=== PATIENT | female | born 1930 ===

== ENCOUNTER 2017-08-04 09:42 | Outpatient (CLI) | payer OTHER ==
[~2017-08-04 09:42] MED LIST: FLONASE16 GM NS; LIPO-FLAVONOID1 EACH PO
== END 2017-08-04 09:47 | disposition home or self-care (01) ==
LOC: NUCLEAR 09:42
DX: D35.1 Benign neoplasm of parathyroid gland (principal); E83.52 Hypercalcemia
CPT/HCPCS: 78072; A9500

== ENCOUNTER 2017-11-13 13:32 | Outpatient (CLI) | payer OTHER | END 2017-11-13 13:42 | disposition home or self-care (01) | LOC: NUCLEAR 13:32 | DX: M81.0 Age-related osteoporosis without current pathological fracture (principal) ==

== ENCOUNTER 2018-08-18 07:09 | Outpatient (CLI) | payer OTHER | END 2018-08-18 07:24 | disposition home or self-care (01) | LOC: TOM 07:09 | DX: R10.12 Left upper quadrant pain (principal); R10.32 Left lower quadrant pain ==

== ENCOUNTER 2020-12-06 09:25 | Outpatient (CLI) | payer OTHER | END 2020-12-06 09:30 | disposition home or self-care (01) | LOC: RAD 09:25 | PROVIDERS: ATTEND Physical Medicine & Rehabilitation | DX: M41.87 Other forms of scoliosis, lumbosacral region (principal); M54.59 Other low back pain ==

== ENCOUNTER 2021-01-02 14:41 | Outpatient (CLI) | payer OTHER | END 2021-01-02 14:54 | disposition home or self-care (01) | LOC: RAD 14:41 | PROVIDERS: ATTEND Physical Medicine & Rehabilitation | DX: M43.8X4 Other specified deforming dorsopathies, thoracic region (principal); M54.6 Pain in thoracic spine; M94.0 Chondrocostal junction syndrome [Tietze] ==

== ENCOUNTER 2021-06-25 11:13 | Outpatient (CLI) | payer OTHER ==
[2021-07-11] MEDS ORDERED: LEVO-T25 MCG PO (11:47)
[2021-07-11] MEDS ORDERED: CLONAZEPAM0.5 M1 PO (11:47)
[2021-07-11] MEDS ORDERED: PAXIL20 MG PO (11:47)
[2021-07-11] MEDS ORDERED: EZALLOR SPRINKL10 MG PO (11:47)
[2021-07-11] MEDS ORDERED: SENSIPAR30 MG PO (11:47)
[2021-07-11] MEDS ORDERED: MIRTAZAPINE15 M1 PO (11:48)
[2021-07-11] MEDS ORDERED: CAMBIA50 MG PO (11:49)
== END 2021-06-25 11:28 | disposition home or self-care (01) ==
LOC: TOM 11:13
PROVIDERS: ATTEND Physical Medicine & Rehabilitation
DX: M25.552 Pain in left hip (principal); R10.2 Pelvic and perineal pain; R25.9 Unspecified abnormal involuntary movements

== ENCOUNTER 2021-07-25 10:18 | Outpatient (CLI) | payer OTHER ==
[~2021-07-25 10:18] MED LIST changes: +CAMBIA50 MG PO; +CLONAZEPAM0.5 M1 PO; +EZALLOR SPRINKL10 MG PO; +LEVO-T25 MCG PO; +MIRTAZAPINE15 M1 PO; +PAXIL20 MG PO; +SENSIPAR30 MG PO
== END 2021-07-25 10:29 | disposition home or self-care (01) ==
LOC: TOM 10:18
PROVIDERS: ATTEND Physical Medicine & Rehabilitation
DX: M25.552 Pain in left hip (principal)

== ENCOUNTER 2021-08-29 12:02 | Outpatient (CLI) | payer OTHER | END 2021-08-29 12:12 | disposition home or self-care (01) | LOC: MRI 12:02 | PROVIDERS: ATTEND Psychiatry & Neurology Neurology | DX: R25.9 Unspecified abnormal involuntary movements (principal); R40.4 Transient alteration of awareness; R56.9 Unspecified convulsions | CPT/HCPCS: 70551 ==

== ENCOUNTER → 2021-11-21 | Outpatient (CLI) | payer OTHER | END | disposition home or self-care (01) | LOC: RAD 10:27 | PROVIDERS: ATTEND Orthopaedic Surgery | DX: M17.11 Unilateral primary osteoarthritis, right knee (principal); M54.59 Other low back pain ==

== ENCOUNTER 2022-10-16 09:43 | Outpatient (CLI) | payer OTHER | END 2022-10-16 09:48 | disposition home or self-care (01) | LOC: RAD 09:43 | PROVIDERS: ATTEND General Practice | DX: J44.0 Chronic obstructive pulmonary disease with (acute) lower respiratory infection (principal) ==

== ENCOUNTER 2022-10-24 09:11 | Outpatient (CLI) | payer OTHER ==
[2022-10-24] MEDS ORDERED: RELAGESIC 5001 EACH PO (18:06)
[2022-10-24] MEDS ORDERED: DUI500 PO (18:06)
== END 2022-10-24 09:16 | disposition home or self-care (01) ==
LOC: TOM 09:11
PROVIDERS: ATTEND Psychiatry & Neurology Clinical Neurophysiology
DX: G31.83 Neurocognitive disorder with Lewy bodies (principal); F03.90 Unspecified dementia, unspecified severity, without behavioral disturbance, psychotic disturbance, mood disturbance, and anxiety

== ENCOUNTER 2022-10-24 12:56 | Emergency (ER) | payer OTHER ==
[~2022-10-24] VITALS: Ht 154.9 cm; Wt 65.8 kg
[2022-10-24] MEDS ORDERED: RELAGESIC 5001 EACH PO (18:06)
[2022-10-24] MEDS ORDERED: DUI500 PO (18:06)
== END 2022-10-24 18:15 | disposition home or self-care (01) ==
LOC: ER 12:56
PROVIDERS: Emergency Medicine
DX: M54.2 Cervicalgia (principal); Z91.041 Radiographic dye allergy status; E78.00 Pure hypercholesterolemia, unspecified; E03.9 Hypothyroidism, unspecified; I49.8 Other specified cardiac arrhythmias; F41.8 Other specified anxiety disorders; N39.0 Urinary tract infection, site not specified